=== PATIENT | female | born 1985 | race Caucasian/White ===

== ENCOUNTER → 2020-11-24 11:01 | Outpatient (BNVA) | payer OTHER, SELFPAY | PROVIDERS: Visit Provider Internal Medicine | DX: M79.642 Pain in left hand (principal); M79.641 Pain in right hand | CPT/HCPCS: 99202 ==

== ENCOUNTER → 2020-12-12 09:56 | Outpatient (BNVA) | payer OTHER, SELFPAY | PROVIDERS: Visit Provider Physician Assistant | DX: S61.211A Laceration without foreign body of left index finger without damage to nail, initial encounter (principal); W26.2XXA Contact with edge of stiff paper, initial encounter | CPT/HCPCS: 99202 ==

== ENCOUNTER → 2023-07-06 09:30 | Outpatient (BNV) | payer BC, SELFPAY | PROVIDERS: Visit Provider Psychiatry & Neurology Psychiatry | DX: F41.1 Generalized anxiety disorder (principal); F32.A Depression, unspecified; Z72.89 Other problems related to lifestyle | CPT/HCPCS: 90792; 90832; 99213 ==

== ENCOUNTER 2023-07-15 08:04 | Outpatient (REF) | payer BC, SELFPAY ==
[2023-07-15 08:21] LABS: MANUAL DIFF FLAG NO
[2023-07-15 09:13] LABS: Basophils Percent Auto 0.9 % (0-2); Eosinophils Absolute Auto 0.1 X10*3/uL (0.0-0.4); Eosinophils Percent Auto 2.4 % (0-4); Hematocrit 41.4 % (37.0-47.0); Hemoglobin 13.5 g/dl (12.0-16.0); Imm Gran Abs Auto 0.01 X10*3/uL (0.00-0.03); Imm Gran Pct Auto 0.2 % (0.0-0.4); Lymphocytes Absolute Auto 1.7 X10*3/uL (1.2-4.9); Mean Corpuscular HGB Conc 32.6 g/dl (31.0-35.0); Mean Corpuscular Hemoglobin 29.7 pg (27.0-33.0); Mean Corpuscular Volume 91.2 fL (80.0-98.0); Mean Platelet Volume 10.1 fL (9.4-12.3); Monocytes Absolute Auto 0.4 X10*3/uL (0.1-1.2); Monocytes Percent Auto 9.6 % (2-11); Neutrophils Absolute Auto 2.3 x10*3/uL (2.0-8.3); Neutrophils Percent Auto 50.9 % (45-73); Platelet Count 228 X10*3/uL (160-400); Red Blood Count 4.54 X10*6/uL (4.20-5.50); Red Cell Distribution Width 12.4 % (11.0-16.0); White Blood Count 4.6 X10*3/uL (4.8-10.8)
[2023-07-15 09:23] LABS: Estimated Average Glucose 108 mg/dL; Hemoglobin A1c % 5.4 % (<6.0)
[2023-07-15 10:05] LABS: Alanine Aminotransferase 18 U/L (0-31); Albumin Level 4.7 g/dL (3.5-5.0); Alkaline Phosphatase 40 U/L (39-117); Anion Gap 15 (12-20); Aspartate Amino Transferase 25 U/L (5-31); Bilirubin Total 0.6 mg/dL (0.0-1.0); Blood Urea Nitrogen 15 mg/dL (9-16); Calcium 10.2 mg/dL (8.4-10.2); Carbon Dioxide 21 mmol/L (22-29); Chloride 106 mmol/L (96-108); Cholesterol 166 mg/dL (<200); Estimated Glomerular Filt Rate > 60; Ferritin 111 ng/mL (10-122); Free T4 (Free Thyroxine) 0.87 ng/dL (0.71-1.85); Glucose Random 87 mg/dL (60-115); HCG Quantitative < 2 mIU/mL; HDL Cholesterol 65 mg/dL (>40); Iron 129 mcg/dL (30-160); LDL Cholesterol Calculated 91 mg/dL (<100); Percent Iron Saturation 44 % (15-50); Potassium 4.3 mmol/L (3.3-5.1); Sodium 138 mmol/L (135-145); Thyroid Stimulating Hormone 1.17 uIU/mL (0.32-4.0); Total Iron Binding Capacity 296 mcg/dL (228-428); Total Protein 7.9 g/dL (6.5-8.0); Triglycerides 50 mg/dL (<150); Unsaturated Iron Binding 167 ug/dL; Vitamin D 25-OH Total 34.5 ng/mL (>30)
[2023-07-15 10:49] LABS: Vitamin B12 489 pg/mL (200-900)
== END 2023-07-15 08:05 | disposition home or self-care (01) ==
LOC: HO.LAB 08:04
PROVIDERS: Visit Provider Psychiatry & Neurology Psychiatry
DX: F33.8 Other recurrent depressive disorders (principal); F41.1 Generalized anxiety disorder
CPT/HCPCS: 36415; 80053; 80061; 82306; 82607; 82728; 82746; 83036; 83540; 83735; 84439; 84443; 84702; 85025

== ENCOUNTER 2023-07-20 09:45 | Outpatient (RCR) | payer BC, SELFPAY ==
[2023-07-04 12:34] VITALS: BMI 27.0
[2023-07-04 12:35] VITALS: BP 122/83; PULSE 78; TEMP 37.2
--- NOTE | 2023-07-05 12:30 | PC.ADMIT ---
Patient is a 37 year old female who was referred to [facility] by her therapist d/t increased depression and anxiety sxs. Patient reports her cat of 16 years on her wedding anniversary and she was passed up for a job promotion. She reports living paycheck to paycheck with her . She reports being on a MADHU from work since February 2023 d/t her mental health. Plan is to go back to work when feeling more stable. Patient is alert and oriented x4. Calm and cooperative. Presented with depressed mood and anxious affect. Denied SI. She was given a copy of her safety plan if needed. Patient reports in November 2022-until the middle of February the she stopped using Vodka as she felt it was affecting her depression. She reports she was drinking Vodka 4-5 drinks daily. Currently drinking wine 2 glasses 5 days a week. She reports she likes to try different harsha as she has a background in the [employer] business. Medications reconciled with patient and patient's pharmacy. Patient has a history of being prescribed Escitalopram 3 month supply from her PCP however she stated she read the side effects and did not start the medication.
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
--- NOTE | 2023-07-07 14:55 | HO.PHP ---
Client's case has been opened and reviewed in treatment team.
--- NOTE | 2023-07-11 11:55 | PC.NURSE ---
Martha participated in group discussion about social supports and connecting with the community. Discussion and information provided on local resources for mental health in the area. Martha shared that she would like to reach out to a friend she can rely on and communicate more with family and friends.
--- NOTE | 2023-07-12 23:50 | HO.PHPPROGNO ---
Subjective Subjective Date of Service: 07/12/23 Reason For Visit: DANG Diagnostics Vital Signs (24Hr): BMI result Body Mass Index 27.0 Assessment & Plan Certification I certify that partial hospital treatment is medically necessary due to the symptoms and problems resulting from the patient's mental illness and the failure to treat the patient at the partial hospital level of care would likely result in the patient requiring inpatient psychiatric care which could not be prevented at a less intensive level of care. Total time managing care of this patient today ____ minutes. Discharge Plan Discharge Attending provider: rKistina Roberts Medications: Continued loratadine [Claritin] 10 mg Tablet 10 mg PO DAILY Rx Instructions: Patient takes OTC for seasonal allergies. quercetin 250 mg PO DAILY Rx Instructions: Patient takes OTC for seasonal allergies. ibuprofen 400 mg Tablet 400 mg PO DAILY PRN (Reason: Pain) Rx Instructions: Patient takes OTC for pain PRN. Print Language: Hungarian
--- NOTE | 2023-07-12 23:51 | HO.PHPPROGNO ---
Subjective Subjective Date of Service: 07/12/23 Reason For Visit: DANG Interim History: Patient requesting to see provider to folow up on discussion around medication. They initially was thinking of starting on an antidepressant as wel discussed last time, however there was a group today that covered adverse effects of antidepressant medications and now feels kind of freaked out by taking this. We discuss this in more detail, ways that it can be helpful, expected and common side effects, but also understanding that starting at very low doses (well below therapeutic range) and then moving up slowly helps to mitigate potential side effects and even possibly avoid them all together. Reviewed SSRIs and that historically they are rather well-tolerated medications with a reasonable SE profile. She reports her mood as generally okay, she describes suffering periods of seasonal affective disorder in zabala past, lasts for a few months, but otherwise mood issues (high lability/emotionality, hypersensitivity, tearfulness) were really a new thing resulting from the perfect storm of a number of recent stressors. Generalized anxiety is a more pervasive issues, and she does present with a hstory and presentation of DANG, which would also be managed often with an SSRI as 1st line treatment. However she is wuite anxious about committing to a regular daily medication, and we discuss other option, particularly PRN options that may be an easier option for her consideration. SHe generally self medicates with alcohol in the evening not much, in moderation . A unit, less than 2, and never before putting her children to bed. Helps he unwind and keeps her fromt overthinking which can keep her feeling uptight and delay onset of sleep. She reports experiencing anxiety in the daytime as well, mostly as nervousness/racing heart and generally physical symptoms that are constant grind of worrying and nervousness, rather than peeks of acute anxiety or panic. Medication Compliance: Yes Side effects from medications: No Attending Groups: Yes Review of Systems Acute medical concerns: No Mental Status Exam Mental Status Exam Narrative: Alert, oriented, in no acute distress. Calm, cooperative, engaged. No psychomotor agitation or neurovegetative retardation. Eye contact maintained. Mood anxious, affect variable, bright, tearful, some lability, no irritability otherwise mood congruent. Speech normal. Thought process linear, coherent. Thought content related to stressors, denies any helplessness, hopelessness or SI.? No aggressive ideation or HI. No paranoia or delusional content elicited. No evidence of psychosis. Insight and judgment fair but adequate. Diagnostics Vital Signs (24Hr): BMI result Body Mass Index 27.0 Assessment & Plan Assessment & Plan (1) DANG (generalized anxiety disorder): Status: Acute Code(s): F41.1 - Generalized anxiety disorder (2) Depressive disorder: Status: Acute Code(s): F32.A - Depression, unspecified Assessment and Plan: adjustment disorder with mixed disturbance of emotions and conduct r/o MDD, recurrent, moderate r/o SIMD (etoh) history of seasonal affective disorder (3) Other problems related to lifestyle: Status: Acute Code(s): Z72.89 - Other problems related to lifestyle Assessment and Plan: r/o alcohol abuse Plan start gabapentin 200-300 mg daily in evening for gen anx/sleep (agrees to avoid alcohol use) will plan to start propranolol 10 mg qd-bid PRN daytime anxiety/nervousness/racing heart continue regular medication routine lab work VS reviewed UDS, EKG as indicateds continue to monitor Patient educated on: diagnosis, medication risk/benefits and substance abuse Informed Consent: understands Reason for contiued partial hosp. stay Substantial Risk for: inability to function, rapid decompensation and med/psych decompensation Certification I certify that partial hospital treatment is medically necessary due to the symptoms and problems resulting from the patient's mental illness and the failure to treat the patient at the partial hospital level of care would likely result in the patient requiring inpatient psychiatric care which could not be prevented at a less intensive level of care. Total time managing care of this patient today __30__ minutes. Discharge Plan Discharge Attending provider: Kristina Roberts Medications: New gabapentin 100 mg capsule 200 - 300 mg PO BEDTIME PRN (Reason: anxiety, sleep) Qty: 20 0RF propranolol 10 mg tablet 10 mg PO BID PRN (Reason: anxiety) Qty: 14 0RF Continued loratadine [Claritin] 10 mg Tablet 10 mg PO DAILY Rx Instructions: Patient takes OTC for seasonal allergies. quercetin 250 mg PO DAILY Rx Instructions: Patient takes OTC for seasonal allergies. ibuprofen 400 mg Tablet 400 mg PO DAILY PRN (Reason: Pain) Rx Instructions: Patient takes OTC for pain PRN. Print Language: Croatian
--- NOTE | 2023-07-13 17:46 | HO.PHP ---
[facility] staff member followed up with Martha due to her leaving group four. Martha disclosed that she was triggered by another patient because he was giving unsolicited feedback after she asked him to stop. Martha noted that she brieflly brought up a message her mother sent her that was trigger and this patient was trying to provide her with feedback. Martha voiced that she felt supported by the clinician who was running group 4 but needed to remove herself because she is having a challenging time with this individual. Martha also talked about how this patient triggered her in group three talking about suicide and it reminded her of her sisters suicide attempt. Martha expressed concerns around this individual approaching her tomorrow, in which [facility] staff members provided her with support and stated that if she is feeling uncomfortable she can come get a staff member or inform the individual she is not wanting to engage in discussing her life stressors with him at this time. Martha was receptive. [facility] staff member offered Martha space to process her thoughts and feelings. Martha was able to receive clinicial support and regulate. Martha talked about how she will be going to volunteering after program and also expressed that she has to start a new medication but feeling hesitant because of the way she is feeling. Martha expressed concerns around possible side affects. [facility] staff member provided her with support. [facility] staff member assessed for SI, plan or intent. Martha reported no concerns around SI, plan or intent and voiced she will be in program tomorrow.
--- NOTE | 2023-07-14 12:52 | HO.PHP ---
Late entry 07/14/23: [facility] staff member faxed a referral to [facility] for med management for [place]. PHP staff member is awaiting a call with the scheduled date and time.
--- NOTE | 2023-07-18 09:54 | HO.PHP ---
[place] is not scheduled for today due to having no early childhood education coordinator. [place] will be in attendance to [facility] tomorrow.
--- NOTE | 2023-07-19 22:15 | P.PNPSP_ITS ---
Subjective Subjective Date of Service: 07/19/23 Reason For Visit: DANG Interim History: Patient seen for follow-up, anticipating discharge at the end of program tomorrow.? The gabapentin has been a real game changer... I am doing really well with it. It really takes the edge off my anxiety, I have been able to relax in the evenings, enjoyed spending time with my family, I was able to watch movies with my and not have a million thoughts running in my head . She takes 100 mg capsule after dinner, a repeat 100 mg after putting kids to bed and an additional 100 mg at bedtime. She is sleeping better 6-8 hours, but is getting closer to 8 hours most nights. She denies any adverse effects, and wakes without feeling groggy or tired. Moreso she notes she has not had any alcohol/wine since starting and in fact has no urge to drink seeing as gabapentin is doing the job of helping her unwind in the evening. She feels 100 mg dose PRN for anxiety helpful during the day. Reports no acute issues or concerns. Medication compliant, medications well- tolerated. Mood is stable.? Denies any hopelessness or SI. Denies thoughts of harming self or others at this time. Denies any aggressive ideation or HI. Denies any paranoia or AH or VH. Sleep, appetite, energy stable. Mental Status Exam Mental Status Exam Narrative: Alert, oriented, in no acute distress. Calm, cooperative. Mood stable, affect appropriate. Speech normal. Thought process linear, coherent, more goal- directed. Thought content related to stressors, future-oriented, denies any helplessness, hopelessness or SI.? No aggressive ideation or HI. No paranoia or delusional content elicited. No evidence of psychosis. Insight and judgment fair-good. Diagnostics Vital Signs (24Hr): BMI result Body Mass Index 27.0 Assessment & Plan Assessment & Plan (1) DANG (generalized anxiety disorder): Status: Acute Code(s): F41.1 - Generalized anxiety disorder (2) Depressive disorder: Status: Acute Code(s): F32.A - Depression, unspecified Assessment and Plan: adjustment disorder with mixed disturbance of emotions and conduct r/o MDD, recurrent, moderate r/o SIMD (etoh) history of seasonal affective disorder (3) Other problems related to lifestyle: Status: Acute Code(s): Z72.89 - Other problems related to lifestyle Assessment and Plan: r/o alcohol abuse Plan Discharge from [facility] tomorrow continue gabapentin 300-400 mg daily in evening (in split dose) for sleep may take 100 mg bid PRN anxiety continue propranolol 5-10 mg qd PRN daytime physical anxiety/racing heart continue regular medications will defer further medication management to outpatient provider Refills sent to pharmacy Patient educated on: diagnosis, medication risk/benefits and substance abuse Informed Consent: understands Reason for contiued partial hosp. stay Substantial Risk for: stable for discharge Certification I certify that partial hospital treatment is medically necessary due to the symptoms and problems resulting from the patient's mental illness and the failure to treat the patient at the partial hospital level of care would likely result in the patient requiring inpatient psychiatric care which could not be prevented at a less intensive level of care. Total time managing care of this patient today _30___ minutes. Discharge Plan Discharge Attending provider: Kristina Roberts Medications: New propranolol 10 mg tablet 10 mg PO BID PRN (Reason: anxiety) Qty: 14 0RF gabapentin 300 mg capsule 300 mg PO BEDTIME PRN (Reason: sleep) Qty: 15 0RF Continued loratadine [Claritin] 10 mg Tablet 10 mg PO DAILY Rx Instructions: Patient takes OTC for seasonal allergies. quercetin 250 mg PO DAILY Rx Instructions: Patient takes OTC for seasonal allergies. ibuprofen 400 mg Tablet 400 mg PO DAILY PRN (Reason: Pain) Rx Instructions: Patient takes OTC for pain PRN. Changed gabapentin 100 mg capsule 100 - 200 mg PO BID PRN (Reason: anxiety, sleep) 15 Days Qty: 60 0RF Stand Alone Forms: Patient Portal Discharge page Patient Education: Propranolol (By mouth), Gabapentin (By mouth), Depression (DC), Generalized Anxiety Disorder (GEN) Print Language: Macanese
== END 2023-07-20 23:59 | disposition home or self-care (01) ==
LOC: HO.PHPA 09:45
PROVIDERS: Visit Provider Psychiatry & Neurology Psychiatry
DX: F41.1 Generalized anxiety disorder (principal); F43.25 Adjustment disorder with mixed disturbance of emotions and conduct; Z72.89 Other problems related to lifestyle; Z79.899 Other long term (current) drug therapy
CPT/HCPCS: 90791; 90853